=== PATIENT | female | born 1965 | race Hispanic/Latino ===

== ENCOUNTER 2016-08-16 14:25 | Outpatient (CLI) | payer BC ==
--- NOTE | 2016-08-16 16:07 | Cat Scan Report ---
CT lumbar spine without contrast: Transverse images are obtained from T12-S1. Coronal and sagittal 2-D reformatted images are included. There is no subluxation nor is there any compression fracture. There is diffuse mild anterior spondylosis as well as posterior spondylosis between L4-5 and L5-S1. There are degenerative discs with severe narrowing and gas at the L1-2, L3-4, L4-5, and L5-S1 levels. The apophyseal joints a severely degenerative bilaterally at L4-5 and L5-S1. The foramen on the right is moderately narrowed at L4-5 and bilaterally narrowed at L5-S1. The soft tissues are not optimally visualized without a contrasted is no obvious bulging or herniated disc. No spinal stenosis is identified. Impressions: 1. Multilevel severe degenerative disc changes. 2. 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 3. No identified disc bulge or herniation. Evaluation for this finding however is quite limited without thecal contrast. Also consider MR scan.
== END 2016-08-16 14:26 | disposition home or self-care (01) ==
LOC: CT 14:25
PROVIDERS: ATTEND Internal Medicine
DX: M48.07 Spinal stenosis, lumbosacral region (principal); M47.897 Other spondylosis, lumbosacral region
CPT/HCPCS: 72131